=== PATIENT | male | born 1935 | race African-American/Black ===

== ENCOUNTER 2023-07-27 14:13 | Emergency (ER) | payer MEDICARE ==
[~2023-07-27] VITALS: Ht 172.7 cm; Wt 68.0 kg
[2023-07-27 14:15] VITALS: BP_SYST 106; PULSE 122; RESP 18; TEMP 98.4; O2SAT 98
[2023-07-27 15:09] LABS: BASOPHILS % (AUTO) 0.1 % (0.0-2.0); HEMATOCRIT 29.7 % (36-54); HEMOGLOBIN 9.4 g/dL (14.0-18.0); LYMPHOCYTES # (AUTO) 0.6 K/uL (1.0-5.5); LYMPHOCYTES % (AUTO) 4.7 % (20.5-51.5); MEAN CORPUSCULAR HEMOGLOBIN 30 pg (27-31); MEAN CORPUSCULAR HGB CONC 32 % (32-36); MEAN CORPUSCULAR VOLUME 94 fL (79.0-98.0); MONOCYTES # (AUTO) 1.3 K/uL (0.0-1.0); MONOCYTES % (AUTO) 10.5 % (1.7-9.3); NEUTROPHILS # (AUTO) 10.8 K/uL (1.8-7.7); NEUTROPHILS % (AUTO) 84.7 % (40.0-70.0); PLATELET COUNT (AUTO) 263 K/uL (130-430); RED BLOOD CELL COUNT(AUTO) 3.15 MIL/uL (4.2-6.2); RED CELL DISTRIBUTION WIDTH 17.8 % (9.0-15.0); WHITE BLOOD COUNT (AUTO) 12.7 K/uL (4.8-10.8)
[2023-07-27 15:25] LABS: ALBUMIN 2.1 g/dL (3.4-4.8); ANION GAP 14 (5-15); ASPARTATE AMINOTRANSFERASE 9 U/L (10-37); CALCIUM 8.5 mg/dL (8.4-11.0); CARBON DIOXIDE 22 mmol/L (23-29); CHLORIDE 109 mmol/L (98-107); CREATININE 3.09 mg/dL (0.55-1.30); GLUCOSE 109 mg/dL (74-106); SODIUM SERUM 145 mmol/L (136-145); TOTAL BILIRUBIN 0.3 mg/dL (0.0-1.0); TOTAL PROTEIN, SERUM 5.2 g/dL (6.4-8.3); UREA NITROGEN, BLOOD 35 mg/dL (8-21)
[2023-07-27 15:31] LABS: POTASSIUM 2.8 mmol/L (3.5-5.1)
[2023-07-27] MEDS ORDERED: KCL 20 mEq in 100 mL (PREMIX) 100 ML IV ONE (15:45)
[2023-07-27] MEDS ORDERED: KCL 40 mEq in 100 mL (PREMIX) 100 ML IV ONE (15:45)
[2023-07-27 15:51] LABS: COVID19 ANTIGEN SOFIA FIA NEGATIVE (NEGATIVE)
[2023-07-27 15:51] LABS: ALANINE AMINOTRANSFERASE < 5 U/L (12-78)
[2023-07-27 15:54] LABS: INFLUENZA TYPE A negative (NEGATIVE); INFLUENZA TYPE B NEGATIVE (NEGATIVE)
[2023-07-27] MEDS ORDERED: NACL 0.9% 2,000 ML IV ONE (16:00)
[2023-07-27] MEDS ORDERED: cefTRIAXone 1 GM IVPB PREMIX 50 ML IV ONE (16:00)
[2023-07-28 02:05] VITALS: BP_SYST 105; PULSE 79; RESP 18; TEMP 98.3; O2SAT 96
== END 2023-07-27 20:05 | disposition short-term general hospital (02) ==
LOC: SED 14:13
DX: E86.0 Dehydration (principal); E87.6 Hypokalemia; N28.9 Disorder of kidney and ureter, unspecified; D64.9 Anemia, unspecified; Z86.19 Personal history of other infectious and parasitic diseases; Z79.899 Other long term (current) drug therapy; Z20.822 Contact with and (suspected) exposure to COVID-19
CPT/HCPCS: 99285; 96365; 70450; 71045; 96361; 87426; 80053; 85025; 87040; 84484; 87186; 36415; 93005; 76376; 96368; 83605; 87804 ×2; J0696; J3480; J7030

== ENCOUNTER 2023-08-03 21:52 | Inpatient (IN) | payer MEDICARE ==
[~2023-08-03] VITALS: Ht 185.4 cm; Wt 81.6 kg
[2023-08-03 22:14] VITALS: BP_SYST 95; PULSE 60; RESP 14; TEMP 94.5; O2SAT 96
[2023-08-03] MEDS ORDERED: NS 1000 ML IV.SOLN IV ONE (23:00)
[2023-08-03 23:38] LABS: BASOPHILS % (AUTO) 0.1 % (0.0-2.0); EOSINOPHILS % (AUTO) 0.8 % (0.0-4.0); HEMATOCRIT 25.9 % (36-54); HEMOGLOBIN 8.4 g/dL (14.0-18.0); LYMPHOCYTES # (AUTO) 0.4 K/uL (1.0-5.5); LYMPHOCYTES % (AUTO) 9.2 % (20.5-51.5); MEAN CORPUSCULAR HEMOGLOBIN 30 pg (27-31); MEAN CORPUSCULAR HGB CONC 32 % (32-36); MEAN CORPUSCULAR VOLUME 92 fL (79.0-98.0); MONOCYTES # (AUTO) 0.2 K/uL (0.0-1.0); MONOCYTES % (AUTO) 4.3 % (1.7-9.3); NEUTROPHILS # (AUTO) 3.4 K/uL (1.8-7.7); NEUTROPHILS % (AUTO) 85.6 % (40.0-70.0); PLATELET COUNT (AUTO) 161 K/uL (130-430); RED CELL DISTRIBUTION WIDTH 17.4 % (9.0-15.0)
[2023-08-03 23:46] LABS: ANION GAP 10 (5-15); CALCIUM 7.2 mg/dL (8.4-11.0); CARBON DIOXIDE 19 mmol/L (23-29); CHLORIDE 111 mmol/L (98-107); CREATININE 1.64 mg/dL (0.55-1.30); GLUCOSE 61 mg/dL (74-106); SODIUM SERUM 140 mmol/L (136-145); UREA NITROGEN, BLOOD 19 mg/dL (8-21)
[2023-08-03 23:48] LABS: INR 1.5 (0.80-1.20)
[2023-08-03 23:53] LABS: ALANINE AMINOTRANSFERASE 6 U/L (12-78); ALBUMIN 1.7 g/dL (3.4-4.8); ASPARTATE AMINOTRANSFERASE 16 U/L (10-37); TOTAL BILIRUBIN 0.2 mg/dL (0.0-1.0); TOTAL PROTEIN, SERUM 3.9 g/dL (6.4-8.3)
[2023-08-04] VITALS (19 sets, daily range): BP systolic 84–139; PULSE 59–70; RESP 14–24; TEMP 97.8–99; O2SAT 92–100
[2023-08-04 00:11] LABS: BILIRUBIN,URINE NEGATIVE (NEGATIVE); COLOR,URINE YELLOW (YELLOW); GLUCOSE,URINE NEGATIVE (NEGATIVE); KETONES,URINE NEGATIVE (NEGATIVE); NITRITE, URINE NEGATIVE (NEGATIVE); PH,URINE 5.5 (5.0-8.0); PROTEIN URINE NEGATIVE (NEGATIVE); UROBILINOGEN,URINE 0.2 (0.2-1.0)
[2023-08-04 00:24] LABS: BLOOD, URINE TRACE (NEGATIVE); CLARITY/URINE HAZY (CLEAR); LEUKOCYTE ESTERASE ,URINE NEGATIVE (NEGATIVE)
[2023-08-04 00:29] LABS: BACTERIA,URINE None Seen /HPF (None Seen); WBC,URINE 0-3 /HPF (0-3)
[2023-08-04] MEDS ORDERED: metroNIDAZOLE 500 mg/NS 100 ML IV ONE (01:15)
[2023-08-04] MEDS ORDERED: NACL 0.9% 1,000 ML IV ONE (03:00)
[2023-08-04] MEDS ORDERED: BISA-140 PO (04:07)
[2023-08-04] MEDS ORDERED: DONE10TA44 PO (04:30)
[2023-08-04] MEDS ORDERED: LIP20 PO (04:30)
[2023-08-04] MEDS ORDERED: ALLO100T PO (04:30)
[2023-08-04] MEDS ORDERED: CAS50 PO (04:30)
[2023-08-04] MEDS ORDERED: ONDA-8 TL (04:30)
[2023-08-04] MEDS ORDERED: LORA-259 PO (04:30)
[2023-08-04] MEDS ORDERED: MIRT-91 PO (04:30)
[2023-08-04] MEDS ORDERED: FURO-149 PO (04:30)
[2023-08-04] MEDS ORDERED: MEMA10TA PO (04:30)
[2023-08-04] MEDS ORDERED: FAMO-132 PO (04:30)
[2023-08-04] MEDS ORDERED: HYOS0.1275 PO (04:30)
[2023-08-04] MEDS ORDERED: APIX2.5T PO (04:30)
[2023-08-04] MEDS ORDERED: VANC125C10 PO (04:30)
[2023-08-04] MEDS ORDERED: HAL1 PO (04:30)
[2023-08-04] MEDS ORDERED: metroNIDAZOLE 500 mg/NS 100 ML IV SCH ×2 (09:00)
[2023-08-04 11:32] LABS: BASOPHILS % (AUTO) 0.1 % (0.0-2.0); EOSINOPHILS % (AUTO) 0.2 % (0.0-4.0); HEMATOCRIT 28.5 % (36-54); HEMOGLOBIN 9.3 g/dL (14.0-18.0); LYMPHOCYTES # (AUTO) 0.4 K/uL (1.0-5.5); LYMPHOCYTES % (AUTO) 6.9 % (20.5-51.5); MEAN CORPUSCULAR HEMOGLOBIN 30 pg (27-31); MEAN CORPUSCULAR HGB CONC 33 % (32-36); MEAN CORPUSCULAR VOLUME 92 fL (79.0-98.0); MONOCYTES # (AUTO) 0.4 K/uL (0.0-1.0); MONOCYTES % (AUTO) 5.9 % (1.7-9.3); NEUTROPHILS # (AUTO) 5.4 K/uL (1.8-7.7); NEUTROPHILS % (AUTO) 86.9 % (40.0-70.0); PLATELET COUNT (AUTO) 172 K/uL (130-430); RED BLOOD CELL COUNT(AUTO) 3.09 MIL/uL (4.2-6.2); RED CELL DISTRIBUTION WIDTH 17.9 % (9.0-15.0); WHITE BLOOD COUNT (AUTO) 6.2 K/uL (4.8-10.8)
[2023-08-04] MEDS ORDERED: PIPERACILLIN/TAZO 2.25G/DEX-IS 50 ML IV SCH (11:45)
[2023-08-04 11:50] LABS: ALBUMIN 1.8 g/dL (3.4-4.8); ANION GAP 8 (5-15); ASPARTATE AMINOTRANSFERASE 17 U/L (10-37); CALCIUM 7.2 mg/dL (8.4-11.0); CARBON DIOXIDE 19 mmol/L (23-29); CHLORIDE 112 mmol/L (98-107); CREATININE 1.74 mg/dL (0.55-1.30); GLUCOSE 60 mg/dL (74-106); POTASSIUM 4.1 mmol/L (3.5-5.1); SODIUM SERUM 139 mmol/L (136-145); TOTAL BILIRUBIN 0.2 mg/dL (0.0-1.0); TOTAL PROTEIN, SERUM 4.2 g/dL (6.4-8.3); UREA NITROGEN, BLOOD 19 mg/dL (8-21)
[2023-08-04 11:59] LABS: ALANINE AMINOTRANSFERASE 8 U/L (12-78)
[2023-08-04] MEDS: VANCOMYCIN HCL ORAL SOLUTION 125 MG/5 ML, 150 ML PO SCH ×2 (17:15→21:48)
[2023-08-04] MEDS: PIPERACILLIN/TAZO 3.375/DEX-IS 50 ML IV SCH ×2 (17:16→23:25)
[2023-08-04] MEDS: NACL 0.9% 1,000 ML IV SCH (21:48)
[2023-08-05] VITALS (20 sets, daily range): BP systolic 83–127; PULSE 49–64; RESP 11–18; TEMP 95.3–97.3; O2SAT 93–99
[2023-08-05 05:25] LABS: BASOPHILS % (AUTO) 0.1 % (0.0-2.0); EOSINOPHILS % (AUTO) 0.3 % (0.0-4.0); HEMATOCRIT 29.1 % (36-54); HEMOGLOBIN 9.5 g/dL (14.0-18.0); LYMPHOCYTES # (AUTO) 0.7 K/uL (1.0-5.5); LYMPHOCYTES % (AUTO) 11.7 % (20.5-51.5); MEAN CORPUSCULAR HEMOGLOBIN 30 pg (27-31); MEAN CORPUSCULAR HGB CONC 33 % (32-36); MEAN CORPUSCULAR VOLUME 92 fL (79.0-98.0); MONOCYTES # (AUTO) 0.3 K/uL (0.0-1.0); NEUTROPHILS % (AUTO) 82.9 % (40.0-70.0); PLATELET COUNT (AUTO) 148 K/uL (130-430); RED BLOOD CELL COUNT(AUTO) 3.15 MIL/uL (4.2-6.2); RED CELL DISTRIBUTION WIDTH 18.3 % (9.0-15.0)
[2023-08-05 06:00] LABS: ALANINE AMINOTRANSFERASE 9 U/L (12-78); ALBUMIN 1.8 g/dL (3.4-4.8); ANION GAP 8 (5-15); ASPARTATE AMINOTRANSFERASE 16 U/L (10-37); CALCIUM 7.3 mg/dL (8.4-11.0); CARBON DIOXIDE 19 mmol/L (23-29); CHLORIDE 113 mmol/L (98-107); CREATININE 1.88 mg/dL (0.55-1.30); GLUCOSE 67 mg/dL (74-106); SODIUM SERUM 140 mmol/L (136-145); TOTAL BILIRUBIN 0.2 mg/dL (0.0-1.0); TOTAL PROTEIN, SERUM 4.4 g/dL (6.4-8.3); UREA NITROGEN, BLOOD 20 mg/dL (8-21)
[2023-08-05] MEDS: VANCOMYCIN HCL ORAL SOLUTION 125 MG/5 ML, 150 ML PO SCH ×4 (09:00→20:11)
[2023-08-05] MEDS: PIPERACILLIN/TAZO 3.375/DEX-IS 50 ML IV SCH ×3 (12:42→23:58)
[2023-08-05] MEDS: NACL 0.9% 1,000 ML IV SCH (12:44)
[2023-08-06] VITALS (7 sets, daily range): BP systolic 96–123; PULSE 56–66; RESP 16–20; TEMP 96–98.1; O2SAT 93–97
[2023-08-06 04:23] LABS: BASOPHILS % (AUTO) 0.1 % (0.0-2.0); EOSINOPHILS % (AUTO) 0.4 % (0.0-4.0); HEMOGLOBIN 8.8 g/dL (14.0-18.0); LYMPHOCYTES # (AUTO) 0.7 K/uL (1.0-5.5); LYMPHOCYTES % (AUTO) 9.6 % (20.5-51.5); MEAN CORPUSCULAR HEMOGLOBIN 30 pg (27-31); MEAN CORPUSCULAR HGB CONC 33 % (32-36); MEAN CORPUSCULAR VOLUME 92 fL (79.0-98.0); MONOCYTES # (AUTO) 0.3 K/uL (0.0-1.0); MONOCYTES % (AUTO) 4.6 % (1.7-9.3); NEUTROPHILS # (AUTO) 5.9 K/uL (1.8-7.7); NEUTROPHILS % (AUTO) 85.3 % (40.0-70.0); PLATELET COUNT (AUTO) 136 K/uL (130-430); RED BLOOD CELL COUNT(AUTO) 2.92 MIL/uL (4.2-6.2); RED CELL DISTRIBUTION WIDTH 18.5 % (9.0-15.0); WHITE BLOOD COUNT (AUTO) 6.9 K/uL (4.8-10.8)
[2023-08-06 04:53] LABS: ALANINE AMINOTRANSFERASE 6 U/L (12-78); ALBUMIN 1.6 g/dL (3.4-4.8); ANION GAP 9 (5-15); ASPARTATE AMINOTRANSFERASE 15 U/L (10-37); CALCIUM 7.5 mg/dL (8.4-11.0); CARBON DIOXIDE 18 mmol/L (23-29); CHLORIDE 114 mmol/L (98-107); CREATININE 2.08 mg/dL (0.55-1.30); POTASSIUM 4.1 mmol/L (3.5-5.1); SODIUM SERUM 141 mmol/L (136-145); TOTAL BILIRUBIN 0.3 mg/dL (0.0-1.0); TOTAL PROTEIN, SERUM 4.2 g/dL (6.4-8.3); UREA NITROGEN, BLOOD 20 mg/dL (8-21)
[2023-08-06 04:55] LABS: GLUCOSE 50 mg/dL (74-106)
[2023-08-06] MEDS: PIPERACILLIN/TAZO 3.375/DEX-IS 50 ML IV SCH ×2 (07:01→16:39)
[2023-08-06] MEDS: VANCOMYCIN HCL ORAL SOLUTION 125 MG/5 ML, 150 ML PO SCH ×3 (09:44→16:36)
[2023-08-06] MEDS ORDERED: IPRATROPIUM/ALBUTEROL SULFATE 3 ML AMPUL.NEB (DUONEB) INH PRN (11:00)
[2023-08-06] MEDS: NACL 0.9% 1,000 ML IV SCH ×2 (16:34)
[2023-08-06 19:34] LABS: APPEARANCE,SPUN,BODY FLUID CLEAR (CLEAR); BF APPEARANCE UNSPUN CLEAR (CLEAR); BODY FLUID COLOR LT YELLOW (LT YELLOW); BODY FLUID SOURCE/ TYPE PLEURAL; SOURCE/TYPE ,BODY FLUID PLEURAL
[2023-08-06 19:35] LABS: BODY FLUID TOTAL VOLUME 600 mL
[2023-08-06 20:04] LABS: EOSINOPHIL, BODY FLUID 0 %; LYMPHOCYTES, BODY FLUID 9 %; MONOCYTES,BODY FLUID 25 %; NEUTROPHIL, BODY FLUID 66 %; RBC, BODY FLUID 7 /uL; WBC, BODY FLUID 88 /uL
[2023-08-06 20:06] LABS: BODY FLUID OTHER CELLS SEE NOTE: %
[2023-08-07 11:30] LABS: BODY FLUID GLUCOSE 48 mg/dL; BODY FLUID TOTAL PROTEIN 1.7 g/dL
== END 2023-08-06 20:10 | disposition short-term general hospital (02) | DRG 871 ==
LOC: SED 21:52 → SIC 08-04 02:56 → STU 08-05 19:37
PROVIDERS: ADMIT Family Medicine; ATTEND Family Medicine
PROC: 0W993ZZ Drainage of Right Pleural Cavity, Percutaneous Approach (ICD-10-PCS; principal; 2023-08-06)
DX: A41.9 Sepsis, unspecified organism (principal); G93.41 Metabolic encephalopathy; J18.9 Pneumonia, unspecified organism; R65.21 Severe sepsis with septic shock; J96.01 Acute respiratory failure with hypoxia; J69.0 Pneumonitis due to inhalation of food and vomit; A04.72 Enterocolitis due to Clostridium difficile, not specified as recurrent; Z20.822 Contact with and (suspected) exposure to COVID-19; F03.90 Unspecified dementia, unspecified severity, without behavioral disturbance, psychotic disturbance, mood disturbance, and anxiety; Z85.46 Personal history of malignant neoplasm of prostate; Z79.01 Long term (current) use of anticoagulants; Z79.899 Other long term (current) drug therapy
CPT/HCPCS: 32555; 36415; 70450-TC; 71045; 76376; 80053; 81000; 81003; 82947; 83037; 83605; 84157; 84484; 85025; 85610-TC; 85730-TC; 87040; 87070-TC; 87081; 87086; 88108; 89051-TC; 89060-TC; 92610-GN; 93005; 96361; 96365; 99291; G0378; J2543; J3490; J7030